=== PATIENT | female | born 1945 | race Caucasian/White ===

== ENCOUNTER → 2016-11-14 | Outpatient (CLI) | payer MEDICARE, OTHER | LOC: RT 09:34 | DX: I20.9 Angina pectoris, unspecified (principal); R01.1 Cardiac murmur, unspecified | CPT/HCPCS: 93005 ==

== ENCOUNTER → 2016-11-14 | Outpatient (CLI) | payer MEDICARE, OTHER ==
[2016-11-14 13:25] LABS: HEMOGLOBIN 14.2 gm/dl (12.3-15.3); RED BLOOD COUNT 4.55 M/UL (4.00-5.10); WHITE BLOOD COUNT 3.5 K/UL (4.5-11.0)
== END ==
LOC: LAB 12:38
PROVIDERS: Nurse Practitioner
DX: I20.9 Angina pectoris, unspecified (principal); R06.02 Shortness of breath; R05 Cough; R07.81 Pleurodynia
CPT/HCPCS: 36415; 82553; 84484; 85025; 85379

== ENCOUNTER 2021-04-04 01:12 | Emergency (ER) | payer MEDICARE, OTHER ==
[2021-04-04 02:46] LABS: HEMOGLOBIN 13.1 gm/dl (12.3-15.3); RED BLOOD COUNT 4.07 M/UL (4.00-5.10); WHITE BLOOD COUNT 6.1 K/UL (4.5-11.0)
[2021-04-04 03:27] LABS: BUN/CREATININE RATIO 16 (0-10)
== END 2021-04-05 10:20 | disposition left against medical advice (07) ==
LOC: ER1 01:12
PROVIDERS: Emergency Medicine
DX: R56.9 Unspecified convulsions (principal); Z20.822 Contact with and (suspected) exposure to COVID-19
CPT/HCPCS: 70450; 71045; 80053; 82550; 82553; 83605; 83874; 84484; 85025; 93005; 96374; 99285; J1953; U0002